=== PATIENT | male | born 1965 | race Two or more races ===

== ENCOUNTER 2017-11-15 12:40 | Outpatient (CLI) | payer OTHER | END 2017-11-15 17:00 | disposition home or self-care (01) | LOC: RAD 12:40 | DX: M54.5 Low back pain (principal); M54.2 Cervicalgia ==

== ENCOUNTER → 2017-12-31 | Emergency (ER) | payer OTHER ==
[~2017-12-31] VITALS: Ht 172.7 cm; Wt 87.1 kg
== END | disposition home or self-care (01) ==
LOC: ER 18:05
DX: R07.89 Other chest pain (principal)

== ENCOUNTER 2018-01-28 08:39 | Outpatient (CLI) | payer OTHER | END 2018-01-28 08:46 | disposition home or self-care (01) | LOC: SONOGRAMA 08:39 → MAMO-SONO 08:45 → SONOGRAMA 08:46 | DX: R10.10 Upper abdominal pain, unspecified (principal) ==

== ENCOUNTER 2018-10-30 07:48 | Outpatient (CLI) | payer OTHER | END 2018-10-30 09:47 | disposition home or self-care (01) | LOC: LAB 07:48 | DX: D50.8 Other iron deficiency anemias (principal); N30.00 Acute cystitis without hematuria; I10 Essential (primary) hypertension; E78.49 Other hyperlipidemia; K29.30 Chronic superficial gastritis without bleeding; E03.8 Other specified hypothyroidism; E79.0 Hyperuricemia without signs of inflammatory arthritis and tophaceous disease ==

== ENCOUNTER 2018-11-01 07:39 | Outpatient (CLI) | payer OTHER | END 2018-11-01 07:44 | disposition home or self-care (01) | LOC: LAB 07:39 | DX: D50.8 Other iron deficiency anemias (principal); N30.00 Acute cystitis without hematuria; I10 Essential (primary) hypertension; E78.2 Mixed hyperlipidemia; K29.30 Chronic superficial gastritis without bleeding; E03.8 Other specified hypothyroidism; E79.0 Hyperuricemia without signs of inflammatory arthritis and tophaceous disease ==